=== PATIENT | male | born 1980 | race Two or more races ===

== ENCOUNTER 2017-11-02 21:12 | Emergency (ER) | payer MEDICAID ==
[~2017-11-02] VITALS: Ht 170.2 cm; Wt 93.0 kg
[2017-11-02 21:21] VITALS: BP 118/79
== END 2017-11-03 03:12 | disposition home or self-care (01) ==
LOC: ER 21:12
DX: M54.5 Low back pain (principal); M62.838 Other muscle spasm; M25.562 Pain in left knee; M54.2 Cervicalgia
CPT/HCPCS: 70450; 72125; 72131; 73562

== ENCOUNTER 2018-09-15 13:33 | Emergency (ER) | payer MEDICAID ==
[~2018-09-15] VITALS: Ht 170.2 cm; Wt 108.9 kg
[2018-09-15 14:55] LABS: Basophils # (auto) 0.1 uL; Basophils % (auto) 1.3 % (0.0-2.0); Eosinophils # (auto) 0 uL; Eosinophils % (auto) 0.2 % (0.0-7.0); Hematocrit 51.8 % (41.0-53.0); Hemoglobin 17.1 g/dL (13.5-17.5); Lymphocytes # (auto) 1.5 uL; Lymphocytes % (auto) 12.3 % (10.0-50.0); Mean Corpuscular Hemoglobin 30.2 pg (28.0-32.0); Mean Corpuscular Volume 91.5 fL (80.0-100.0); Monocytes # (auto) 0.5 uL; Monocytes % (auto) 3.9 % (0.0-12.0); Neutrophils # (auto) 9.8 uL; Neutrophils % (auto) 82.3 % (37.0-80.0); Nucleated Red Blood Cells % 0.1 %; Platelet Count (auto) 280 10^3/uL (140-450); Red Blood Cells 5.66 10^6/uL (4.5-5.90); Red Cell Distribution Width 13.9 % (11.8-14.3); White Blood Cell 11.9 10^3/uL (4.4-10.8)
[2018-09-15 15:09] LABS: Alanine Aminotransferase 90 U/L (16-61); Albumin 4.8 g/dL (3.4-5.0); Anion Gap 12 (5-15); Aspartate Aminotransferase 39 U/L (15-37); Blood Urea Nitrogen 8 mg/dL (7-18); Calcium 8.7 mg/dL (8.5-10.1); Carbon Dioxide 23 mmol/L (21-32); Chloride 108 mmol/L (98-107); GFR African American 107 mL/min; GFR Non-African American 88 mL/min; Glucose 108 mg/dL (74-106); Potassium 3.7 mmol/L (3.5-5.1); Sodium 143 mmol/L (136-145)
[2018-09-15 15:14] LABS: Urine Bacteria NONE SEEN /hpf (None Seen); Urine Blood Negative /uL (Negative); Urine Mucus FEW (None Seen); Urine Specific Gravity 1.019 (1.001-1.035); Urine WBC 1 /hpf (0 - 3)
[2018-09-15 15:14] LABS: Alkaline Phosphatase 81 U/L (45-117); Bilirubin, Total 1.1 mg/dL (0.2-1.0); Total Protein 9.2 g/dL (6.4-8.2)
[2018-09-15 16:43] LABS: Alcohol, Urine < 3.0 mg/dL (0-5); Barbiturate Scree,Urine NEGATIVE (NEGATIVE); Opiate Scree,Urine NEGATIVE (NEGATIVE); Phencyclidine Screen, Urine NEGATIVE (NEGATIVE)
[2018-09-15 16:44] LABS: Amphetamine Screen, Urine NEGATIVE (NEGATIVE); Benzodiazephine Screen, Urine NEGATIVE (NEGATIVE); Cannabinoid Screen, Urine POSITIVE (NEGATIVE); Cocaine Screen, Urine NEGATIVE (NEGATIVE)
[2018-09-15 18:03] VITALS: BP 129/82
== END 2018-09-15 22:24 | disposition left against medical advice (07) ==
LOC: ER 13:33
DX: R07.9 Chest pain, unspecified (principal); R00.2 Palpitations; Z53.21 Procedure and treatment not carried out due to patient leaving prior to being seen by health care provider
CPT/HCPCS: 36415; 71046; 80053; 80307; 81001; 84484; 85025; 93005

== ENCOUNTER 2020-06-18 16:14 | Emergency (ER) | payer MEDICAID, OTHER ==
[~2020-06-18] VITALS: Ht 170.2 cm; Wt 97.5 kg
[2020-06-18 18:08] VITALS: BP 135/97
== END 2020-06-18 18:33 | disposition home or self-care (01) ==
LOC: ER 16:14
DX: S16.1XXA Strain of muscle, fascia and tendon at neck level, initial encounter (principal); R51.9 Headache, unspecified; X58.XXXA Exposure to other specified factors, initial encounter; Y93.89 Activity, other specified; Y92.69 Other specified industrial and construction area as the place of occurrence of the external cause; Y99.8 Other external cause status
CPT/HCPCS: 70450

== ENCOUNTER 2021-10-17 14:45 | Emergency (ER) | payer MEDICAID, OTHER ==
[2021-10-17 15:51] LABS: Basophils # (auto) 0.1 10 ^3/uL (0-0.2); Basophils % (auto) 0.9 % (0.0-2.0); Eosinophils # (auto) 0.1 10 ^3/uL (0-0.8); Eosinophils % (auto) 0.6 % (0.0-7.0); Hematocrit 48.5 % (41.0-53.0); Hemoglobin 16.1 g/dL (13.5-17.5); Lymphocytes # (auto) 3.1 10 ^3/uL (0.4-5.4); Mean Corpuscular Hemoglobin 29.7 pg (28.0-32.0); Mean Corpuscular Hgb Conc. 33.2 g/dL (32.0-36.0); Mean Corpuscular Volume 89.5 fL (80.0-100.0); Monocytes # (auto) 0.7 10 ^3/uL (0-1.3); Neutrophils # (auto) 5.4 10 ^3/uL (1.6-8.6); Neutrophils % (auto) 58.5 % (37.0-80.0); Nucleated Red Blood Cells % 0.1 %; Red Blood Cells 5.41 10^6/uL (4.5-5.90); Red Cell Distribution Width 13.5 % (11.8-14.3); White Blood Cell 9.3 10^3/uL (4.4-10.8)
[2021-10-17] MEDS ORDERED: IBU600T PO (16:00)
[2021-10-17 16:10] LABS: BUN/Creatinine Ratio 13.7; Calcium 8.6 mg/dL (8.5-10.1); Potassium 3.9 mmol/L (3.5-5.1)
[2021-10-17 16:13] LABS: Bilirubin, Total 0.4 mg/dL (0.2-1.0); Total Protein 8.1 g/dL (6.4-8.2)
[2021-10-17] MEDS ORDERED: HYDROcodone-ACET 10/325MG TAB PO ONE (18:00)
[2021-10-17 18:47] VITALS: BP 128/93
== END 2021-10-17 18:45 | disposition home or self-care (01) ==
LOC: ER 14:45
DX: M51.36 Other intervertebral disc degeneration, lumbar region (principal); F17.210 Nicotine dependence, cigarettes, uncomplicated; F12.10 Cannabis abuse, uncomplicated
CPT/HCPCS: 36415; 72131; 74176; 80053; 84484; 85025